=== PATIENT | female | born 1990 | race Caucasian/White ===

== ENCOUNTER 2017-02-03 02:20 | Emergency (ER) | payer OTHER ==
[~2017-02-03] VITALS: Ht 160 cm; Wt 65.1 kg
[~2017-02-03 02:20] MED LIST: ADDERALL XR 2020 MG PO; KLONOPIN0.5 M1; KLONOPIN0.5 M1 PO; ORTHO TRI-CYCL1 EACH PO; PAROXETINE HCL20 MG PO; PAXIL10 MG PO; PAXIL20 MG PO; THERAGRAN1 TABLET PO
[2017-02-03 02:22] VITALS: BP 138/91
[2017-02-03] MEDS ORDERED: NAPROSYN500 MG PO (03:38)
[2017-02-03] MEDS ORDERED: FLEXERIL10 MG PO (03:38)
== END 2017-02-03 04:05 | disposition home or self-care (01) ==
LOC: EME 02:20
DX: M54.2 Cervicalgia (principal); M54.9 Dorsalgia, unspecified; G89.11 Acute pain due to trauma; V43.52XA Car driver injured in collision with other type car in traffic accident, initial encounter; Z91.5 Personal history of self-harm; F17.200 Nicotine dependence, unspecified, uncomplicated
CPT/HCPCS: 99281; 99284